=== PATIENT | female | born 1960 | race Two or more races ===

== ENCOUNTER → 2025-04-14 | Emergency (ER) | payer OTHER ==
[~2025-04-14] VITALS: Ht 157.5 cm; Wt 61.7 kg
[~2025-04-14] MED LIST: ADULT LOW DOSE81 M1; ROSUVASTATIN CA10 MG
== END | disposition left against medical advice (07) ==
LOC: ER 02:28
DX: Z53.21 Procedure and treatment not carried out due to patient leaving prior to being seen by health care provider (principal)